=== PATIENT | male | born 1970 | race Caucasian/White ===

== ENCOUNTER 2018-01-24 16:35 | Emergency (ER) | payer OTHER ==
[2018-01-24] MEDS: KETOROLAC 15 MG INJ IM (20:01)
[2018-01-24] MEDS: DEXAMETHASONE 10 MG/ML 1 ML INJ IM (20:01)
[2018-01-24] MEDS: HYDROCODONE/APAP (5/325) TAB PO (22:00)
== END 2018-01-24 22:49 | disposition home or self-care (01) ==
LOC: FTE 22:49
DX: M54.5 Low back pain (principal)
CPT/HCPCS: 72100; 96372; 99284-25